=== PATIENT | female | born 1960 | race Caucasian/White ===

== ENCOUNTER 2017-08-25 09:04 | Emergency (ER) | payer OTHER ==
[~2017-08-25] VITALS: Ht 162.6 cm; Wt 55.8 kg
[2017-08-25] MEDS ORDERED: NORCO 5-325 TA1 EACH PO (11:11)
[2017-08-25] MEDS ORDERED: CYCLOBENZAPRINE10 MG PO (11:11)
[2017-08-25] MEDS ORDERED: IBUPROFEN600 MG PO (11:11)
== END 2017-08-25 11:37 | disposition home or self-care (01) ==
LOC: ED 09:04
DX: R10.32 Left lower quadrant pain (principal); Z87.442 Personal history of urinary calculi; Z90.710 Acquired absence of both cervix and uterus; Z90.49 Acquired absence of other specified parts of digestive tract
CPT/HCPCS: 74176; 80053; 85025; 96361; 96374; 96375; 99284; J1885; J2405; J7030

== ENCOUNTER 2025-08-13 08:25 | Day surgery (SDC) | payer MEDICARE, OTHER ==
[~2025-08-13] VITALS: Ht 162.6 cm; Wt 61.0 kg
[~2025-08-13 08:25] MED LIST: CALCIUM500 MG PO; CYCLOBENZAPRINE10 MG PO; GARLIC1000 MG PO; HAIR VITAMIN1 EACH PO; IBLOOD GLUCOSE TEST STRIP 1 EA TEST VI PRN; IBUPROFEN600 MG PO; LACTATED RINGER'S 1,000 ML IV SCH; LIDOCAINE HCL 1% 5 ML SDV INJ ONE; MAGNESIUM100 MG PO; MELATONIN1 MG PO; MIDAZOLAM HCL 5 MG/5 ML VIAL IV PRN; NORCO 5-325 TA1 EACH PO; POTASSIUM99 M3 PO; SELENIUM50 MCG PO; VITAMIN B150 MG PO; VITAMIN B650 MG PO; VITAMIN D3250 MC2 PO; ZINC30 M1 PO; fentaNYL citrate 100 MCG/2 ML VIAL IV PRN
[2025-08-13 08:38] VITALS: BP 134/75
[2025-08-13] MEDS ORDERED: [UNRECOGNIZED DRUG - OTHER] (08:49)
[2025-08-13] MEDS ORDERED: LIDOCAINE HCL 2% 5 ML SDV ONE (10:21)
[2025-08-13] MEDS ORDERED: GLYCOPYRROLATE 1 MG/5 ML MDV ONE (10:43)
--- NOTE | 2025-08-13 11:18 | NUR ---
08/13/25 Fer8 Alanis Manzanares 1058- PT PRESENTS TO PACU, LEFT LATERAL POSITION, NON REACTIVE TO STIMULUS. BREATHING EVEN AND NON LABORED, 4L O2 PER NC. LR INFUSING TO RW IV. ABD SOFT, NON DISTENDED. ALL MONITORS IN PLACE. 1100- PT MOVED TO 2L PER NC. 1107- PT WAKES ON OWN, CONFUSED TO WHERE SHE IS, REORIENTED TO TIME AND PLACE. PT SAT UP IN BED, MOVED TO ROOM AIR.
[2025-08-13 13:03] VITALS: BP 112/70
== END 2025-08-13 11:30 | disposition home or self-care (01) ==
LOC: DS 08:25
PROVIDERS: ATTEND Surgery
PROC: 0DJD8ZZ Inspection of Lower Intestinal Tract, Via Natural or Artificial Opening Endoscopic (ICD-10-PCS; principal; 2025-08-13 09:30)
DX: Z12.11 Encounter for screening for malignant neoplasm of colon (principal); K57.30 Diverticulosis of large intestine without perforation or abscess without bleeding; Z90.49 Acquired absence of other specified parts of digestive tract; Z90.710 Acquired absence of both cervix and uterus
CPT/HCPCS: 00811; J2003; J2704; J7121